=== PATIENT | male | born 1950 | race Caucasian/White ===

== ENCOUNTER 2017-01-15 10:47 | Inpatient (IN) | payer MEDICARE, BC ==
[~2017-01-15] VITALS: Ht 182.9 cm; Wt 68.1 kg
[2017-01-15] MEDS ORDERED: SODIUM CHLORIDE 0.9% 1,000ML IVBOLUS ONE (12:00)
[2017-01-15 12:26] LABS: ASPARTATE AMINO TRANSFERASE 27 U/L (15-37); BLOOD UREA NITROGEN 5 mg/dL (7-18)
[2017-01-15 12:31] LABS: IS PT STATUS REG ER OR PRE ER? YES
[2017-01-15 12:37] LABS: ANISOCYTOSIS 1+
[2017-01-15] MEDS ORDERED: OMNIPAQUE 350 MG/ML, 100ML BOTTLE ONE (14:08)
[2017-01-15] MEDS ORDERED: CEFTRIAXONE 1,000 MG in SODIUM CHLORIDE 0.9% 50 ML IVPB ONE (14:30)
[2017-01-15] MEDS ORDERED: AZITHROMYCIN 500 MG in SODIUM CHLORIDE 0.9% 250 ML IV ONE (14:30)
[2017-01-15] MEDS ORDERED: CEFTRIAXONE PMX 1GM/50ML 50 ML IV ONE (15:00)
[2017-01-15] MEDS ORDERED: SODIUM CHLORIDE 0.9% 1,000 ML IV SCH ×2 (15:55→16:00)
[2017-01-15] MEDS ORDERED: LORazepam 2 MG/ML, 1ML IV PRN ×4 (16:00)
[2017-01-15] MEDS ORDERED: ONDANSETRON 2MG/ML, 2ML IVPush PRN (16:00)
[2017-01-15] MEDS ORDERED: LORazepam 0.5MG TABLET PO PRN (16:00)
[2017-01-15] MEDS ORDERED: LORazepam 1MG TABLET PO PRN ×3 (16:00)
[2017-01-15 16:20] VITALS: BP 111/75
[2017-01-15] MEDS ORDERED: NICOTINE 21 MG/24 HR PATCH.TD24 TD ONE ×2 (17:00→20:00)
[2017-01-15] MEDS: ENOXAPARIN 40 MG/0.4 ML SQ SCH (17:00)
[2017-01-15 19:30] VITALS: BP 111/69
[2017-01-15] MEDS: POTASSIUM CHLORIDE 20 MEQ, MAGNESIUM SULFATE 1 GM, THIAMINE 100 MG, FOLIC ACID 1 MG, MV... IV SCH (19:33)
[2017-01-15] MEDS: CEFTRIAXONE PMX 1GM/50ML 50 ML IV SCH (20:02)
[2017-01-15] MEDS: METRONIDAZOLE PMX 500MG/100ML 100 ML IV SCH (20:36)
[2017-01-15] MEDS ORDERED: ALBUTEROL SULFATE 2.5 MG/3 ML NPPB PRN (22:00)
[2017-01-16] MEDS: D5%-0.9% NACL+KCL 20MEQ 1,000 ML IV SCH ×3 (01:00→13:37)
[2017-01-16] MEDS: METRONIDAZOLE PMX 500MG/100ML 100 ML IV SCH ×4 (02:11→20:31)
[2017-01-16 02:14] VITALS: BP 114/71
[2017-01-16 06:17] LABS: ASPARTATE AMINO TRANSFERASE 24 U/L (15-37); BLOOD UREA NITROGEN 5 mg/dL (7-18)
[2017-01-16 08:12] VITALS: BP 127/71
[2017-01-16 13:17] VITALS: BP 120/73
[2017-01-16] MEDS: ENOXAPARIN 40 MG/0.4 ML SQ SCH (16:02)
[2017-01-16 19:33] VITALS: BP 123/75
[2017-01-16] MEDS: CEFTRIAXONE PMX 1GM/50ML 50 ML IV SCH (19:48)
[2017-01-16] MEDS: POTASSIUM CHLORIDE 20 MEQ, MAGNESIUM SULFATE 1 GM, THIAMINE 100 MG, FOLIC ACID 1 MG, MV... IV SCH (19:57)
[2017-01-16] MEDS: NICOTINE 21 MG/24 HR PATCH.TD24 TD SCH (22:13)
[2017-01-17 00:58] VITALS: BP 99/64
[2017-01-17] MEDS: METRONIDAZOLE PMX 500MG/100ML 100 ML IV SCH ×4 (02:27→20:52)
[2017-01-17] MEDS: D5%-0.9% NACL+KCL 20MEQ 1,000 ML IV SCH ×3 (05:14→18:27)
[2017-01-17 05:55] LABS: BLOOD UREA NITROGEN 3 mg/dL (7-18)
[2017-01-17 08:30] VITALS: BP 122/73
[2017-01-17] MEDS ORDERED: LORazepam 2 MG/ML, 1ML IVPush PRN (08:30)
[2017-01-17] MEDS ORDERED: PROPOFOL 10 MG/ML, 50ML ONE (11:59)
[2017-01-17] MEDS ORDERED: ALBUTEROL SULFATE 2.5 MG/3 ML ONE ×2 (12:45→12:59)
[2017-01-17] MEDS ORDERED: FENTANYL PF 100 MCG/2ML IV PRN (13:00)
[2017-01-17] MEDS ORDERED: ALBUTEROL/IPRATROPIUM 2.5MG/0.5MG, 3 ML NPPB SCH (14:00)
[2017-01-17 14:35] VITALS: BP 108/63
[2017-01-17] MEDS: ENOXAPARIN 40 MG/0.4 ML SQ SCH (17:00)
[2017-01-17] MEDS: ALBUTEROL/IPRATROPIUM 2.5MG/0.5MG, 3 ML NPPB SCH ×2 (18:00→22:00)
[2017-01-17 19:25] VITALS: BP 112/58
[2017-01-17] MEDS: CEFTRIAXONE PMX 1GM/50ML 50 ML IV SCH (20:21)
[2017-01-17] MEDS: POTASSIUM CHLORIDE 20 MEQ, MAGNESIUM SULFATE 1 GM, THIAMINE 100 MG, FOLIC ACID 1 MG, MV... IV SCH (20:52)
[2017-01-18 00:14] VITALS: BP 101/67
[2017-01-18] MEDS: METRONIDAZOLE PMX 500MG/100ML 100 ML IV SCH ×5 (02:26→23:05)
[2017-01-18 05:59] LABS: ASPARTATE AMINO TRANSFERASE 20 U/L (15-37)
[2017-01-18] MEDS: ALBUTEROL/IPRATROPIUM 2.5MG/0.5MG, 3 ML NPPB SCH (06:00)
[2017-01-18 06:01] LABS: BLOOD UREA NITROGEN < 1 mg/dL (7-18)
[2017-01-18 07:43] VITALS: BP 128/80
[2017-01-18] MEDS: D5%-0.9% NACL+KCL 20MEQ 1,000 ML IV SCH ×2 (08:30→22:10)
[2017-01-18] MEDS: NICOTINE 21 MG/24 HR PATCH.TD24 TD SCH (09:00)
[2017-01-18] MEDS ORDERED: POTASSIUM CHLORIDE 40 MEQ in SODIUM CHLORIDE 0.9% 500 ML IV ONE (09:00)
[2017-01-18 13:57] VITALS: BP 123/72
[2017-01-18] MEDS ORDERED: ALBUTEROL/IPRATROPIUM 2.5MG/0.5MG, 3 ML NPPB SCH (15:00)
[2017-01-18] MEDS ORDERED: ALBUTEROL/IPRATROPIUM 2.5MG/0.5MG, 3 ML NPPB PRN ×2 (15:30→17:00)
[2017-01-18] MEDS ORDERED: GADOBUTROL 7.5 MMOL/7.5 ML PFS ONE (15:43)
[2017-01-18] MEDS ORDERED: MIDAZOLAM 1 MG/ML, 2ML ONE (15:55)
[2017-01-18] MEDS ORDERED: FENTANYL PF 250 MCG/5ML ONE (15:56)
[2017-01-18] MEDS ORDERED: SUCCINYLCHOLINE 20 MG/ML, 10ML ONE (16:18)
[2017-01-18] MEDS ORDERED: PHENYLEPHRINE 10 MG/ML ONE (16:18)
[2017-01-18] MEDS ORDERED: CEFAZOLIN 1,000 MG ONE (16:18)
[2017-01-18] MEDS ORDERED: PROPOFOL 10 MG/ML, 20ML ONE (16:18)
[2017-01-18] MEDS ORDERED: EPHEDRINE 50 MG/ML, 1ML ONE (16:18)
[2017-01-18] MEDS ORDERED: ONDANSETRON 2MG/ML, 2ML ONE (16:18)
[2017-01-18] MEDS ORDERED: DEXAMETHASONE 4 MG/ML, 1ML ONE (16:18)
[2017-01-18] MEDS ORDERED: MIDAZOLAM 1 MG/ML, 2ML IV PRN (17:00)
[2017-01-18] MEDS ORDERED: PROMETHAZINE 25 MG/ML, 1ML IV PRN (17:00)
[2017-01-18] MEDS ORDERED: ACETAMINOPHEN 325 MG TABLET PO PRN (17:00)
[2017-01-18] MEDS ORDERED: MEPERIDINE/PF 25MG/0.5ML IVPush PRN (17:00)
[2017-01-18] MEDS ORDERED: EPHEDRINE 50 MG/ML, 1ML IVPush PRN (17:00)
[2017-01-18] MEDS ORDERED: hydrALAzine 20 MG/ML, 1ML IV PRN (17:00)
[2017-01-18] MEDS ORDERED: FENTANYL PF 100 MCG/2ML IV PRN (17:00)
[2017-01-18] MEDS ORDERED: HYDROcodone/APAP 7.5-325MG/15ML UDC PO PRN (17:00)
[2017-01-18] MEDS ORDERED: OXYcodone 5 MG/5 ML ORAL.SOL UDC PO PRN (17:00)
[2017-01-18] MEDS: ENOXAPARIN 40 MG/0.4 ML SQ SCH (17:00)
[2017-01-18] MEDS ORDERED: LABETALOL 5MG/ML, 20ML IV PRN (17:00)
[2017-01-18] MEDS ORDERED: ONDANSETRON 2MG/ML, 2ML IVPush PRN (17:00)
[2017-01-18] MEDS ORDERED: ALBUTEROL SULFATE 2.5 MG/3 ML NPPB PRN (17:00)
[2017-01-18] MEDS ORDERED: HYDROmorphone 1 MG/ML, 1ML ONE (17:31)
[2017-01-18] MEDS: HYDROmorphone 1 MG/ML, 1ML IV PRN ×2 (17:32→17:39)
[2017-01-18] MEDS ORDERED: MEPERIDINE/PF 25MG/0.5ML ONE (17:48)
[2017-01-18] MEDS: POTASSIUM CHLORIDE 20 MEQ, MAGNESIUM SULFATE 1 GM, THIAMINE 100 MG, FOLIC ACID 1 MG, MV... IV SCH (19:00)
[2017-01-18 20:04] VITALS: BP 101/60
[2017-01-18 21:00] VITALS: BP 139/45
[2017-01-18] MEDS ORDERED: MORPHINE SULFATE 4 MG/ML, 1ML ONE (21:49)
[2017-01-18] MEDS: CEFTRIAXONE PMX 1GM/50ML 50 ML IV SCH (22:03)
[2017-01-18] MEDS: morphine SULFATE 10 MG/ML, 1ML IV PRN (22:10)
[2017-01-19 02:37] VITALS: BP 105/69
[2017-01-19 05:53] LABS: BLOOD UREA NITROGEN 2 mg/dL (7-18)
[2017-01-19 05:59] LABS: ASPARTATE AMINO TRANSFERASE 16 U/L (15-37)
[2017-01-19] MEDS: morphine SULFATE 10 MG/ML, 1ML IV PRN ×2 (05:59→13:37)
[2017-01-19] MEDS: METRONIDAZOLE PMX 500MG/100ML 100 ML IV SCH ×4 (06:18→23:57)
[2017-01-19] MEDS ORDERED: MAGNESIUM SULFATE PMX 2GM/50ML 50 ML IV ONE (06:30)
[2017-01-19 07:17] VITALS: BP 119/74
[2017-01-19] MEDS: NICOTINE 21 MG/24 HR PATCH.TD24 TD SCH (09:00)
[2017-01-19] MEDS: D5%-0.45% NACL 1,000 ML IV SCH ×2 (09:16→21:01)
[2017-01-19] MEDS ORDERED: OMNIPAQUE 350 MG/ML, 100ML BOTTLE ONE (12:42)
[2017-01-19 14:43] VITALS: BP 98/57
[2017-01-19] MEDS: ENOXAPARIN 40 MG/0.4 ML SQ SCH (17:29)
[2017-01-19 20:00] VITALS: BP 108/66
[2017-01-19] MEDS: CEFTRIAXONE PMX 1GM/50ML 50 ML IV SCH (21:01)
[2017-01-20 02:00] VITALS: BP 117/70
[2017-01-20 05:38] LABS: BLOOD UREA NITROGEN 2 mg/dL (7-18)
[2017-01-20 05:39] LABS: ASPARTATE AMINO TRANSFERASE 18 U/L (15-37)
[2017-01-20] MEDS: METRONIDAZOLE PMX 500MG/100ML 100 ML IV SCH ×4 (05:41→23:18)
[2017-01-20 07:52] VITALS: BP 115/64
[2017-01-20] MEDS: NICOTINE 21 MG/24 HR PATCH.TD24 TD SCH (09:00)
[2017-01-20] MEDS: morphine SULFATE 10 MG/ML, 1ML IV PRN (09:05)
[2017-01-20] MEDS: D5%-0.45% NACL 1,000 ML IV SCH (09:06)
[2017-01-20 12:41] VITALS: BP 145/75
[2017-01-20] MEDS: ENOXAPARIN 40 MG/0.4 ML SQ SCH (16:45)
[2017-01-20 19:47] VITALS: BP 123/69
[2017-01-20] MEDS: CEFTRIAXONE PMX 1GM/50ML 50 ML IV SCH (19:52)
[2017-01-21] MEDS: morphine SULFATE 10 MG/ML, 1ML IV PRN ×2 (02:03→18:11)
[2017-01-21 03:19] VITALS: BP 125/72
[2017-01-21] MEDS: METRONIDAZOLE PMX 500MG/100ML 100 ML IV SCH ×3 (04:43→19:57)
[2017-01-21] MEDS ORDERED: D5%-0.45% NACL 1,000 ML IV SCH (07:30)
[2017-01-21 08:00] VITALS: BP 113/65
[2017-01-21] MEDS: NICOTINE 21 MG/24 HR PATCH.TD24 TD SCH (09:00)
[2017-01-21] MEDS ORDERED: ASPIRIN 81 MG TABLET CHEW GT ONE (14:00)
[2017-01-21 14:05] VITALS: BP 114/71
[2017-01-21] MEDS: ENOXAPARIN 40 MG/0.4 ML SQ SCH (17:46)
[2017-01-21 19:34] VITALS: BP 106/62
[2017-01-21] MEDS: CEFTRIAXONE PMX 1GM/50ML 50 ML IV SCH (21:25)
[2017-01-22] MEDS: METRONIDAZOLE PMX 500MG/100ML 100 ML IV SCH ×4 (02:06→22:21)
[2017-01-22 03:19] VITALS: BP 106/62
[2017-01-22 05:01] LABS: BLOOD UREA NITROGEN 3 mg/dL (7-18)
[2017-01-22 07:44] VITALS: BP 120/69
[2017-01-22] MEDS ORDERED: MAGNESIUM SULFATE PMX 2GM/50ML 50 ML IV ONE (08:00)
[2017-01-22] MEDS: NICOTINE 21 MG/24 HR PATCH.TD24 TD SCH (09:00)
[2017-01-22] MEDS: ASPIRIN 81 MG TABLET CHEW GT SCH (09:08)
[2017-01-22 16:12] VITALS: BP 122/72
[2017-01-22] MEDS: ENOXAPARIN 40 MG/0.4 ML SQ SCH (18:28)
[2017-01-22 20:08] VITALS: BP 122/77
[2017-01-22] MEDS: CEFTRIAXONE PMX 1GM/50ML 50 ML IV SCH (21:27)
[2017-01-23 02:18] VITALS: BP 106/63
[2017-01-23] MEDS: METRONIDAZOLE PMX 500MG/100ML 100 ML IV SCH ×4 (04:02→20:25)
[2017-01-23 06:58] VITALS: BP 112/64
[2017-01-23] MEDS: NICOTINE 21 MG/24 HR PATCH.TD24 TD SCH (09:00)
[2017-01-23] MEDS: ASPIRIN 81 MG TABLET CHEW GT SCH (10:19)
[2017-01-23 13:24] VITALS: BP 111/67
[2017-01-23] MEDS: morphine SULFATE 10 MG/ML, 1ML IV PRN (14:56)
[2017-01-23] MEDS: ENOXAPARIN 40 MG/0.4 ML SQ SCH (17:18)
[2017-01-23 20:23] VITALS: BP 120/74
[2017-01-23] MEDS: CEFTRIAXONE PMX 1GM/50ML 50 ML IV SCH (20:25)
[2017-01-24 02:33] VITALS: BP 116/73
[2017-01-24] MEDS: METRONIDAZOLE PMX 500MG/100ML 100 ML IV SCH (03:41)
[2017-01-24 08:00] VITALS: BP 115/70
[2017-01-24] MEDS: NICOTINE 21 MG/24 HR PATCH.TD24 TD SCH (09:00)
[2017-01-24] MEDS ORDERED: ASPI-515 GT (09:56)
[2017-01-24] MEDS ORDERED: MORP20SO PO (09:56)
[2017-01-24] MEDS: ASPIRIN 81 MG TABLET CHEW GT SCH (11:56)
[2017-01-24] MEDS: morphine SULFATE 10 MG/ML, 1ML IV PRN (11:56)
[2017-01-24 13:33] VITALS: BP 100/61
[2017-01-24] MEDS ORDERED: PNEUMOCOCCAL 23 VACCINE IM-VACC ONE (15:30)
== END 2017-01-24 17:10 | disposition home or self-care (01) | DRG 326 ==
LOC: ED 14:41 → EDIP 14:42 → ED 14:49 → 3NE 16:19 → 4WST 01-18 21:34 → 3NW 01-20 12:38
PROVIDERS: ADMIT Family Medicine
PROC: BD41ZZZ Ultrasonography of Esophagus (ICD-10-PCS; 2017-01-17)
PROC: 0DB38ZX Excision of Lower Esophagus, Via Natural or Artificial Opening Endoscopic, Diagnostic (ICD-10-PCS; principal; 2017-01-17 10:00)
PROC: 0DH60UZ Insertion of Feeding Device into Stomach, Open Approach (ICD-10-PCS; 2017-01-18)
DX: C15.5 Malignant neoplasm of lower third of esophagus (principal); A41.9 Sepsis, unspecified organism; J69.0 Pneumonitis due to inhalation of food and vomit; J96.01 Acute respiratory failure with hypoxia; I63.9 Cerebral infarction, unspecified; E44.0 Moderate protein-calorie malnutrition; F10.239 Alcohol dependence with withdrawal, unspecified; E87.1 Hypo-osmolality and hyponatremia; D68.59 Other primary thrombophilia; J44.0 Chronic obstructive pulmonary disease with (acute) lower respiratory infection; D75.89 Other specified diseases of blood and blood-forming organs; E86.0 Dehydration; F17.210 Nicotine dependence, cigarettes, uncomplicated; E87.6 Hypokalemia; I10 Essential (primary) hypertension; I35.1 Nonrheumatic aortic (valve) insufficiency; K40.90 Unilateral inguinal hernia, without obstruction or gangrene, not specified as recurrent; J44.9 Chronic obstructive pulmonary disease, unspecified; R13.14 Dysphagia, pharyngoesophageal phase; Z80.0 Family history of malignant neoplasm of digestive organs; Z71.6 Tobacco abuse counseling; Z68.20 Body mass index [BMI] 20.0-20.9, adult; Z89.421 Acquired absence of other right toe(s)
CPT/HCPCS: 36415; 70553; 71010; 71020; 71275; 74177; 74220; 77290; 77334; 77470; 80048; 80053; 80061; 82378; 82607; 82746; 83605; 83735; 84100; 84145; 84443; 84484; 85025; 85379; 85610; 87040; 87324; 88305; 90732; 93005; 93306; 93880; 94640; 96361; 96365; A9585; B4087; J0456; J0690; J0696; J1100; J1170; J1650; J2175; J2250; J2405; J2704; J3010; J3411; J3475; J3480; J7620; Q9967; J0330; J2270; J2370; J7030; J7040; J7050